=== PATIENT | female | born 1985 | race Caucasian/White ===

== ENCOUNTER 2017-04-28 20:50 | Emergency (ER) | payer SELFPAY ==
[~2017-04-28] VITALS: Ht 167.6 cm; Wt 78.0 kg
[2017-04-28 20:58] VITALS: BP 136/70; PULSE 108; RESP 16; TEMP 98.5; O2SAT 93
--- NOTE | 2017-04-28 21:28 | PD ---
HPI Chief Complaint: OD/ Ingestion Time Seen by Provider: 21:07 Travel History International Travel<30 days: No Contact w/Intl Traveler<30days: No Traveled to known affect area: No History of Present Illness HPI 31-year-old female was brought in by EMS after heroin overdose. Patient states that she had a drink of alcohol around 4:00 this afternoon. Patient states that she sniffed heroin around 2 hours prior coming to the emergency room. Patient was found unresponsive. EMS was called. GCS is scene was 3. Patient was given Narcan 0.4 mg IV. GCS improved to 15. Patient was transported to ED for evaluation. Patient denies any headache. Patient denies any chest pain or shortness of breath. Patient denies abdominal pain. Patient denies any focal weakness or numbness of extremity. Patient denies any routine medical problem. Patient denies any suicidal ideation. PFSH Past Medical History Asthma: Yes Respiratory: Yes (asthma) Immunizations Current: Yes Tetanus Vaccination: Never Vaccinated Influenza Vaccination: No ?: Not LMP: 04/26/17 Social History Alcohol Use: Yes (occ) Tobacco Use: Yes Substance Use: Yes Allergies-Medications (Allergen,Severity, Reaction): Coded Allergies: No Known Allergies (Verified Allergy, Unknown, 04/28/17) Reported Meds & Prescriptions Reported Meds & Active Scripts Active No Active Prescriptions or Reported Medications Review of Systems General / Constitutional: No: Fever Eyes: No: Visual changes HENT: No: Headaches Cardiovascular: No: Chest Pain or Discomfort Respiratory: No: Shortness of Breath Gastrointestinal: No: Abdominal Pain Genitourinary: No: Dysuria Musculoskeletal: No: Pain Skin: No Rash Neurologic: No: Weakness Psychiatric: No: Depression Endocrine: No: Polydipsia Hematologic/Lymphatic: No: Easy Bruising Physical Exam Narrative GENERAL: Well-nourished, well-developed patient. SKIN: Focused skin assessment warm/dry. HEAD: Normocephalic. EYES: No scleral icterus. No injection or drainage. NECK: Supple, trachea midline. No JVD or lymphadenopathy. CARDIOVASCULAR: Regular rate and rhythm without murmurs, gallops, or rubs. RESPIRATORY: Breath sounds equal bilaterally. No accessory muscle use. GASTROINTESTINAL: Abdomen soft, non-tender, nondistended. MUSCULOSKELETAL: No cyanosis, or edema. BACK: Nontender without obvious deformity. No CVA tenderness. Neurologic exam: Patient's awake and alert oriented 3. No obvious focal neurological deficit. Data Data Last Documented VS Vital Signs Date Time Temp Pulse Resp B/P (MAP) Pulse Ox O2 Delivery O2 Flow Rate FiO2 04/28/17 20:58 98.5 108 16 136/70 (92) 93 MDM Medical Decision Making Medical Screen Exam Complete: Yes Emergency Medical Condition: Yes Differential Diagnosis Differential diagnosis including drug overdose. Narrative Course 31-year-old female overdose on heroin. Patient was given Narcan. Patient's awake alert oriented 3 now. Patient will be observed in the ED until she is stable to be discharged. Diagnosis Primary Impression: Heroin overdose Qualified Codes: T40.1X1A - Poisoning by heroin, accidental (unintentional), initial encounter Patient Instructions: General Instructions Additional Instructions: Advised to follow up with local physician. Return as needed. Med/Other Pt SpecificInfo: No Meds Exist/No RX given Scripts No Active Prescriptions or Reported Meds Disposition: 01 DISCHARGE HOME Condition: Stable Tab Thompson MD Apr 28, 2017 21:28
== END 2017-04-28 21:50 | disposition home or self-care (01) ==
LOC: NEPC 20:50
DX: T40.1X1A Poisoning by heroin, accidental (unintentional), initial encounter (principal); J45.909 Unspecified asthma, uncomplicated; F17.200 Nicotine dependence, unspecified, uncomplicated; X58.XXXA Exposure to other specified factors, initial encounter
CPT/HCPCS: 99283

== ENCOUNTER 2017-05-09 21:18 | Emergency (ER) | payer SELFPAY ==
[~2017-05-09] VITALS: Ht 167.6 cm; Wt 78.0 kg
[2017-05-09 21:20] VITALS: BP 141/86; PULSE 113; RESP 15; TEMP 98.8; O2SAT 97
[2017-05-09 21:49] VITALS: BP 130/97; PULSE 103; RESP 16; O2SAT 96
--- NOTE | 2017-05-09 21:52 | PD ---
HPI Chief Complaint: Neuro Symptoms/ Deficits Time Seen by Provider: 21:50 Travel History International Travel<30 days: No Contact w/Intl Traveler<30days: No Traveled to known affect area: No History of Present Illness HPI 31-year-old female came to the emergency room with history of sudden onset paresthesia of both her upper and lower extremities. Patient states that this started at around 9 AM. Patient had taken Benadryl [id number] for her presumed allergies to the CAT. Patient's mother things that she may have taken little more than she was supposed to. I still did not get the exact number of pills she took. Nurse told me she took 2 pills but mother thinks she may have taken more than that. Patient was tachycardic when she arrived. She says that at 9 AM she suddenly felt lightheaded and tried to call her mother. Patient says that her own voice sounded distant to her. She felt like she would pass out but she did not. This was followed by the paresthesia feeling. Mother drove her to the emergency room. Patient says she's never felt like this in the past. She smokes marijuana in the last time she did was 2 days ago. Denies any other drugs. Currently she is awake and answering questions appropriately. [facility] Past Medical History Narrative Medical List of her past medical, surgical, social and family history is reviewed from the nursing note. Asthma: Yes Respiratory: Yes (asthma) Immunizations Current: Yes Social History Alcohol Use: Yes (occ) Tobacco Use: Yes Substance Use: Yes Allergies-Medications (Allergen,Severity, Reaction): Coded Allergies: No Known Allergies (Verified Allergy, Unknown, 05/09/17) Comments No known drug allergies. Reported Meds & Prescriptions Reported Meds & Active Scripts Active Macrobid (Nitrofurantoin Monoh/Nitrofur Macro) 100 Mg Cap 100 Mg PO BID 5 Days Reported Benadryl Allergy (Diphenhydramine HCl) 25 Mg Cap 25 Mg PO Narrative Medication List of her home medications reviewed from the nursing note. Review of Systems Except as stated in HPI: all other systems reviewed are Neg HENT: Positive: Lightheadedness Neurologic: Positive: Paresthesia Physical Exam Narrative GENERAL: Awake, alert, anxious, no obvious distress SKIN: Focused skin assessment warm/dry. HEAD: Atraumatic. Normocephalic. EYES: Pupils equal and round. No scleral icterus. No injection or drainage. ENT: No nasal bleeding or discharge. Mucous membranes pink and moist. NECK: Trachea midline. No JVD. CARDIOVASCULAR: Regular rate and rhythm. No murmur appreciated. RESPIRATORY: No accessory muscle use. Clear to auscultation. Breath sounds equal bilaterally. GASTROINTESTINAL: Abdomen soft, non-tender, nondistended. Hepatic and splenic margins not palpable. MUSCULOSKELETAL: No obvious deformities. No clubbing. No cyanosis. No edema. NEUROLOGICAL: Awake and alert. No obvious cranial nerve deficits. Motor grossly within normal limits. Normal speech. PSYCHIATRIC: Appropriate mood and affect; insight and judgment normal. Data Data Last Documented VS Orders Orders Electrocardiogram (05/09/17 22:) Complete Blood Count With Diff (05/09/17:) Basic Metabolic Panel (Bmp) (05/09/17 22:) Drug Screen, Random Urine (05/09/17 22:06) Troponin I (05/09/17:) Urinalysis - C+S If Indicated (05/09/17:) Ct Brain W/O Iv Contrast(Rout) (05/09/17 22:06) Chest, Single Ap (05/09/17 22:06) Ecg Monitoring (05/09/17:) Iv Access Insert/Monitor (05/09/17:) Oximetry (05/09/17 22:06) Sodium Chloride 0.9% Flush (Ns Flush) (05/09/17 22:15) Orthostatic Vital Signs (05/09/17 22:06) Sodium Chlor 0.9% 1000 Ml Inj (Ns 1000 M (05/09/17 22:15) Urine Culture (05/09/17 23:20) Nitrofurantoin Monohyd Macrocr (Macrobid (05/09/17 23:45) Ed Discharge Order (05/09/17 23:49) Labs Laboratory Tests Test 05/09/17 22:10 05/09/17 23:20 White Blood Count 11.4 TH/MM3 Red Blood Count 4.59 MIL/MM3 Hemoglobin 13.6 GM/DL Hematocrit 40.6 % Mean Corpuscular Volume 88.4 FL Mean Corpuscular Hemoglobin 29.6 PG Mean Corpuscular Hemoglobin Concent 33.5 % Red Cell Distribution Width 12.8 % Platelet Count 373 TH/MM3 Mean Platelet Volume 10.1 FL Neutrophils (%) (Auto) 53.2 % Lymphocytes (%) (Auto) 35.4 % Monocytes (%) (Auto) 6.2 % Eosinophils (%) (Auto) 4.5 % Basophils (%) (Auto) 0.7 % Neutrophils # (Auto) 6.1 TH/MM3 Lymphocytes # (Auto) 4.1 TH/MM3 Monocytes # (Auto) 0.7 TH/MM3 Eosinophils # (Auto) 0.5 TH/MM3 Basophils # (Auto) 0.1 TH/MM3 CBC Comment DIFF FINAL Differential Comment Blood Urea Nitrogen 12 MG/DL Creatinine 0.75 MG/DL Random Glucose 98 MG/DL Calcium Level 10.0 MG/DL Sodium Level 137 MEQ/L Potassium Level 3.7 MEQ/L Chloride Level 103 MEQ/L Carbon Dioxide Level 26.1 MEQ/L Anion Gap 8 MEQ/L Estimat Glomerular Filtration Rate 91 ML/MIN Troponin I LESS THAN 0.02 NG/ML Urine Color YELLOW Urine Turbidity HAZY Urine pH 6.5 Urine Specific [place] 1.024 Urine Protein TRACE mg/dL Urine Glucose (UA) NEG mg/dL Urine Ketones NEG mg/dL Urine Occult Blood NEG Urine Nitrite NEG Urine Bilirubin NEG Urine Urobilinogen LESS THAN 2.0 MG/DL Urine Leukocyte Esterase TRACE Urine RBC 1 /hpf Urine WBC 1 /hpf Urine Squamous Epithelial Cells 4 /hpf Urine Bacteria RARE /hpf Urine Mucus FEW /lpf Microscopic Urinalysis Comment CATH-CULTURE IND Urine Opiates Screen NEG Urine Barbiturates Screen NEG Urine Amphetamines Screen NEG Urine Benzodiazepines Screen NEG Urine Cocaine Screen NEG Urine Cannabinoids Screen NEG MDM Medical Decision Making Medical Screen Exam Complete: Yes Emergency Medical Condition: Yes Medical Record Reviewed: Yes Interpretation(s) Twelve-lead EKG was reviewed by me. Normal sinus rhythm, normal axis, nonspecific ST-T wave changes. Heart rate of 85 bpm. Differential Diagnosis adverse effect from Benadryl, intracranial bleed, substance abuse Narrative Course 11:50 PM blood test results are within normal limits. UA was suggestive of a UTI. I've given her dose of Macrobid and prescription. CT scan of the head was negative and so was the chest x-ray. I gave her 1 L of IV fluid bolus. I went back to reassess her and patient says she feels much better now. Orthostatics were negative. Her heart rate has come down. I'm comfortable discharging her home. Patient is comfortable going home as well. Procedures EKG Prior to Arrival: No Diagnosis Primary Impression: Paresthesia Additional Impressions: UTI (urinary tract infection) Qualified Codes: N39.0 - Urinary tract infection, site not specified Adverse effect of antiallergenic drug Qualified Codes: T45.0X5A - Adverse effect of antiallergic and antiemetic drugs, initial encounter Referrals: Primary Care Physician Additional Instructions: Please return to the ER if the condition worsens or any other new concerns. Be careful how you take [id number] medications. You should not take more than the recommended dose on the bottle unless you have consulted with the physician. Take the medication as per the prescription direction. Follow-up with your primary care. Med/Other Pt SpecificInfo: Prescription(s) given Scripts Nitrofurantoin Monohydrate Macrocrystals (Macrobid) 100 Mg Cap 100 MG PO BID for Infection for 5 Days, #10 CAP 0 Refills Prov: Fracisco Tyler MD 05/09/17 Disposition: 01 DISCHARGE HOME Condition: Stable Fracisco Tyler MD May 09, 2017 21:52
[2017-05-09] MEDS ORDERED: BENA25CA4 PO (21:55)
[2017-05-09] MEDS ORDERED: SODIUM CHLOR 0.9% 1000 ML INJ 1,000 ML IV ONE (22:15)
[2017-05-09] MEDS ORDERED: SODIUM CHLORIDE 0.9% FLUSH 10 ML FLUSH IVF PRN (22:15)
[2017-05-09 22:23] VITALS: BP_SYST 111; BP_SYST 121; BP_DIAS 75; BP_DIAS 81; RESP 12; RESP 16
[2017-05-09 22:24] VITALS: BP 140/84; RESP 17
--- NOTE | 2017-05-09 22:30 | RADRPT ---
EXAM DATE/TIME: 05/09/2017 22:09 [facility] COMPARISON: No previous studies available for comparison. INDICATIONS : Short of breath MEDICAL HISTORY : None. SURGICAL HISTORY : None. ENCOUNTER: Initial ACUITY: 1 day PAIN SCORE: 0/10 LOCATION: chest FINDINGS: A single view of the chest demonstrates the lungs to be symmetrically aerated without evidence of mas s, infiltrate or effusion. The cardiomediastinal contours are unremarkable. Osseous structures are intact. CONCLUSION: No acute disease. Pedro Berman MD on May 09, 2017 at 22:29 Board Certified Radiologist. This report was verified electronically.
[2017-05-09 22:44] LABS: AUTOMATED NEUTROPHIL # 6.1 TH/MM3 (1.8-7.7); BASOPHIL # 0.1 TH/MM3 (0-0.2); BASOPHIL % 0.7 % (0.0-2.0); EOSINOPHIL # 0.5 TH/MM3 (0-0.4); EOSINOPHIL % 4.5 % (0.0-4.0); HEMATOCRIT 40.6 % (35.0-46.0); HEMOGLOBIN 13.6 GM/DL (11.6-15.3); LYMPH % 35.4 % (9.0-44.0); LYMPHOCYTE # 4.1 TH/MM3 (1.0-4.8); MEAN CELL VOLUME 88.4 FL (80.0-100.0); MEAN CORPUSCULAR HEMOGLOBIN 29.6 PG (27.0-34.0); MEAN CORPUSCULAR HGB CONC 33.5 % (32.0-36.0); MEAN PLATELET VOLUME 10.1 FL (7.0-11.0); MONO % 6.2 % (0.0-8.0); MONOCYTE # 0.7 TH/MM3 (0-0.9); NEUT % 53.2 % (16.0-70.0); PLATELET COUNT 373 TH/MM3 (150-450); RED BLOOD COUNT 4.59 MIL/MM3 (4.00-5.30); RED CELL DISTRIBUTION WIDTH 12.8 % (11.6-17.2); WHITE BLOOD COUNT 11.4 TH/MM3 (4.0-11.0)
--- NOTE | 2017-05-09 22:52 | RADRPT ---
EXAM DATE/TIME: 05/09/2017 22:40 [facility] COMPARISON: No previous studies available for comparison. INDICATIONS : Blurred vision with right arm numbness. RADIATION DOSE: 33.94 CTDIvol (mGy) MEDICAL HISTORY : Asthma. SURGICAL HISTORY : None. ENCOUNTER: Initial ACUITY: 1 day PAIN SCALE: 0/10 LOCATION: cranial TECHNIQUE: Multiple contiguous axial images were obtained of the head. Using automated exposure control and adj ustment of the mA and/or kV according to patient size, radiation dose was kept as low as reasonably a chievable to obtain optimal diagnostic quality images. DICOM format image data is available electro nically for review and comparison. FINDINGS: CEREBRUM: The ventricles are normal for age. No evidence of midline shift, mass lesion, hemorrhage or acute in farction. No extra-axial fluid collections are seen. POSTERIOR FOSSA: The cerebellum and brainstem are intact. The 4th ventricle is midline. The cerebellopontine angle i s unremarkable. EXTRACRANIAL: Moderate mucoperiosteal thickening involving multiple ethmoid sinuses and maxillary antra SKULL: The calvaria is intact. No evidence of skull fracture. CONCLUSION: No acute intracranial findings Pedro Berman MD on May 09, 2017 at 22:50 Board Certified Radiologist. This report was verified electronically.
[2017-05-09 22:56] LABS: TROPONIN I LESS THAN 0.02 NG/ML (0.02-0.05)
[2017-05-09 23:00] LABS: BICARBONATE 26.1 MEQ/L (21.0-32.0); BLOOD UREA NITROGEN 12 MG/DL (7-18); CHLORIDE 103 MEQ/L (98-107); CREATININE 0.75 MG/DL (0.50-1.00); GLOMERULAR FILTRATION RATE 91 ML/MIN (>89); GLUCOSE,RANDOM 98 MG/DL (74-106); SODIUM (NA) 137 MEQ/L (136-145)
[2017-05-09 23:39] LABS: BACTERIA, URINE RARE /hpf; BILIRUBIN, URINE NEG (NEG); BLOOD, URINE NEG (NEG); GLUCOSE,URINE NEG (NEG); KETONE, URINE NEG (NEG); MUCUS URINE FEW /lpf (OCC); NITRITE,URINE NEG (NEG); PH, URINE 6.5 (5.0-8.5); SQUAMOUS EPITHELIAL CELL URINE 4 /hpf (0-5); URINE COLOR YELLOW (YELLW/STRAW); URINE LEUKOCYTE ESTERASE TRACE (NEG)
[2017-05-09] MEDS ORDERED: NITROFURANTOIN MONOHYD MACROCR 100 MG CAP PO ONE (23:45)
[2017-05-09] MEDS ORDERED: MACR100C2 PO (23:52)
--- NOTE | 2017-05-10 14:54 | EKG ---
Date Performed: 05/09/2017 Time Performed: 22:36:08 PTAGE: 31 years EKG: Sinus rhythm NORMAL ECG NO PREVIOUS TRACING DOCTOR: Mikael Cheng Interpretating Date/Time 05/10/2017 14:52:42
--- NOTE | 2017-05-10 14:54 | EKG ---
Date Performed: 05/09/2017 Time Performed: 22:36:08 PTAGE: 31 years EKG: Sinus rhythm NORMAL ECG NO PREVIOUS TRACING DOCTOR: Mikael Cheng Interpretating Date/Time 05/10/2017 14:52:42
--- NOTE | 2017-05-10 14:54 | EKG ---
Date Performed: 05/09/2017 Time Performed: 22:36:08 PTAGE: 31 years EKG: Sinus rhythm NORMAL ECG NO PREVIOUS TRACING DOCTOR: Mikael Cheng Interpretating Date/Time 05/10/2017 14:52:42
== END 2017-05-10 01:28 | disposition home or self-care (01) ==
LOC: NEPC 21:18
DX: R20.2 Paresthesia of skin (principal); R42 Dizziness and giddiness; N39.0 Urinary tract infection, site not specified; B96.89 Other specified bacterial agents as the cause of diseases classified elsewhere; T45.0X5A Adverse effect of antiallergic and antiemetic drugs, initial encounter; F12.90 Cannabis use, unspecified, uncomplicated; Z72.0 Tobacco use
CPT/HCPCS: 70450; 71010; 80048; 80307; 81001; 84484; 85025; 87086; 93005; 96360; 99285; J7030

== ENCOUNTER 2017-11-29 22:54 | Emergency (ER) | payer SELFPAY ==
[~2017-11-29 22:54] MED LIST: BENA25CA4 PO; MACR100C2 PO
[2017-11-29 22:57] VITALS: BP 134/86; PULSE 113; RESP 18; TEMP 98.1; O2SAT 98
[2017-11-29] MEDS ORDERED: GABA400C5 PO (23:01)
[2017-11-29] MEDS ORDERED: SODIUM CHLORID 0.9% 500 ML INJ 500 ML IV ONE (23:15)
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
[2017-11-29 23:32] LABS: AUTOMATED NEUTROPHIL # 3.2 TH/MM3 (1.8-7.7); BASOPHIL % 0.6 % (0.0-2.0); EOSINOPHIL # 0.1 TH/MM3 (0-0.4); EOSINOPHIL % 1.3 % (0.0-4.0); HEMATOCRIT 37.8 % (35.0-46.0); HEMOGLOBIN 12.5 GM/DL (11.6-15.3); LYMPHOCYTE # 2.3 TH/MM3 (1.0-4.8); MEAN CELL VOLUME 83.7 FL (80.0-100.0); MEAN CORPUSCULAR HEMOGLOBIN 27.6 PG (27.0-34.0); MEAN CORPUSCULAR HGB CONC 32.9 % (32.0-36.0); MONO % 6.6 % (0.0-8.0); MONOCYTE # 0.4 TH/MM3 (0-0.9); NEUT % 53.5 % (16.0-70.0); PLATELET COUNT 318 TH/MM3 (150-450); RED BLOOD COUNT 4.52 MIL/MM3 (4.00-5.30); RED CELL DISTRIBUTION WIDTH 14.5 % (11.6-17.2)
[2017-11-29 23:41] LABS: PROTHROMBIN TIME - PATIENT 9.8 SEC (9.8-11.6)
[2017-11-29 23:46] LABS: AMORPHOUS SEDIMENT, URINE RARE; BACTERIA, URINE RARE /hpf; BILIRUBIN, URINE NEG (NEG); BLOOD, URINE NEG (NEG); GLUCOSE,URINE NEG (NEG); HYALINE CAST, URINE 5 /lpf (RARE); KETONE, URINE NEG (NEG); MUCUS URINE FEW /lpf (OCC); NITRITE,URINE NEG (NEG); SQUAMOUS EPITHELIAL CELL URINE 4 /hpf (0-5); URINE COLOR COLORLESS (YELLW/STRAW); URINE LEUKOCYTE ESTERASE NEG (NEG)
[2017-11-30 00:02] LABS: ALBUMIN 3.9 GM/DL (3.4-5.0); ALKALINE PHOSPHATASE 59 U/L (45-117); ALT (GPT) 22 U/L (10-53); AST (GOT) 19 U/L (15-37); BICARBONATE 26.9 MEQ/L (21.0-32.0); BLOOD UREA NITROGEN 7 MG/DL (7-18); CALCIUM 8.6 MG/DL (8.5-10.1); CHLORIDE 106 MEQ/L (98-107); CREATININE 0.77 MG/DL (0.50-1.00); GLOMERULAR FILTRATION RATE 87 ML/MIN (>89); GLUCOSE,RANDOM 146 MG/DL (74-106); SODIUM (NA) 144 MEQ/L (136-145); TOTAL BILIRUBIN ADULT 0.2 MG/DL (0.2-1.0); TOTAL PROTEIN 7.9 GM/DL (6.4-8.2)
[2017-11-30 00:10] LABS: ACETAMINOPHEN LESS THAN 2.0 MCG/ML (10.0-30.0)
[2017-11-30] MEDS ORDERED: NALO1SPR NASAL (00:31)
[2017-11-30 01:19] VITALS: BP 138/82
--- NOTE | 2017-11-30 22:23 | EKG ---
Date Performed: 11/29/2017 Time Performed: 23:52:06 PTAGE: 32 years EKG: SINUS TACHYCARDIA ABNORMAL RHYTHM ECG NO PREVIOUS TRACING DOCTOR: Yon Urbina Interpretating Date/Time 11/30/2017 22:21:07
== END 2017-11-30 01:20 | disposition home or self-care (01) ==
LOC: NEPE 22:54
DX: T40.2X1A Poisoning by other opioids, accidental (unintentional), initial encounter (principal); F17.200 Nicotine dependence, unspecified, uncomplicated; R00.0 Tachycardia, unspecified
CPT/HCPCS: 80053; 80307; 81001; 84703; 85025; 85610; 85730; 93005; 96360; 99284; J7040